=== PATIENT | female | born 1985 | race African-American/Black ===

== ENCOUNTER 2017-03-22 17:01 | Emergency (ER) | payer OTHER | END 2017-03-22 23:14 | disposition left against medical advice (07) | LOC: ER 22:31 | DX: M79.643 Pain in unspecified hand (principal); Z53.21 Procedure and treatment not carried out due to patient leaving prior to being seen by health care provider ==

== ENCOUNTER 2017-08-22 09:58 | Emergency (ER) | payer MEDICAID, OTHER ==
[~2017-08-22] VITALS: Ht 165.1 cm; Wt 68.7 kg
[2017-08-22] MEDS ORDERED: IBUPROFEN 800MG TABLET PO ONE (11:30)
[2017-08-22 11:43] VITALS: BP 101/61
== END 2017-08-22 12:39 | disposition home or self-care (01) ==
LOC: ER 10:31
DX: K04.7 Periapical abscess without sinus (principal); F17.200 Nicotine dependence, unspecified, uncomplicated; F12.10 Cannabis abuse, uncomplicated
CPT/HCPCS: 99283

== ENCOUNTER 2018-01-05 00:09 | Emergency (ER) | payer MEDICAID, OTHER | END 2018-01-05 01:25 | disposition left against medical advice (07) | LOC: ER 00:09 | DX: Z53.21 Procedure and treatment not carried out due to patient leaving prior to being seen by health care provider (principal) ==

== ENCOUNTER 2018-08-30 09:02 | Emergency (ER) | payer OTHER ==
[~2018-08-30] VITALS: Ht 165.1 cm; Wt 68.0 kg
[2018-08-30] MEDS ORDERED: KETOROLAC 30MG/ML VIAL IV ONE (10:15)
[2018-08-30 10:47] LABS: BASOPHILS % 1.1 % (0.0-2.0); EOSINOPHILS % 2.4 % (0.0-5.0); HEMATOCRIT. 37.8 % (36.0-48.0); HEMOGLOBIN. 12.8 g/dL (12.0-16.0); LYMPHOCYTES % 18.9 % (20.0-50.0); MEAN CORPUSCULAR HEMOGLOBIN 28.4 pg (28.0-32.0); MEAN CORPUSCULAR VOLUME 83.9 fL (81.0-99.0); MEAN PLATELET VOLUME 8.5 fl (7.4-10.4); MONOCYTES % 9.3 % (2.0-8.0); NEUTROPHILS % 68.3 % (40.0-76.0); PLATELET 245 x1000/uL (130-400); RED CELL DISTRIBUTION WIDTH 15.4 % (11.6-14.6)
[2018-08-30 10:53] LABS: CHLORIDE 108 mEq/L (98-107)
[2018-08-30 15:30] VITALS: BP 118/61
== END 2018-08-30 15:30 | disposition home or self-care (01) ==
LOC: ER 09:02
DX: R07.89 Other chest pain (principal); M25.562 Pain in left knee
CPT/HCPCS: 36415; 71045; 73562; 80053; 81025; 83880; 84484; 85025; 93005; 96374; 99284; J1885

== ENCOUNTER 2019-05-04 14:50 | Emergency (ER) | payer MEDICAID, OTHER ==
[~2019-05-04] VITALS: Ht 165.1 cm; Wt 61.0 kg
[2019-05-04 14:59] VITALS: BP 131/80
== END 2019-05-04 18:47 | disposition home or self-care (01) ==
LOC: ER 14:50
DX: J02.9 Acute pharyngitis, unspecified (principal); F17.210 Nicotine dependence, cigarettes, uncomplicated; F12.10 Cannabis abuse, uncomplicated
CPT/HCPCS: 99283

== ENCOUNTER 2019-05-06 03:52 | Emergency (ER) | payer MEDICAID ==
[~2019-05-06] VITALS: Ht 165.1 cm; Wt 70.0 kg
[2019-05-06] MEDS: SODIUM CHLORIDE 0.9% 1,000 ML IV ONE (05:15)
[2019-05-06 05:33] LABS: HEMATOCRIT. 47.4 % (36.0-48.0); HEMOGLOBIN. 16.1 g/dL (12.0-16.0); MEAN CORPUSCULAR HEMOGLOBIN 29.5 pg (28.0-32.0); MEAN CORPUSCULAR VOLUME 86.8 fL (81.0-99.0); MEAN PLATELET VOLUME 8.6 fl (7.4-10.4); PLATELET 263 x1000/uL (130-400); RED BLOOD CELL COUNT 5.45 mill/uL (4.2-5.4); RED CELL DISTRIBUTION WIDTH 13.8 % (11.6-14.6)
[2019-05-06 05:41] LABS: CHLORIDE 107 mEq/L (98-107)
[2019-05-06 05:47] LABS: HCG SCREEN NEGATIVE
[2019-05-06] MEDS: ONDANSETRON HCL 4MG/2ML INJ IV STA (05:55)
[2019-05-06 06:05] LABS: PLATELET ESTIMATE NORMAL
[2019-05-06 06:44] LABS: CLARITY URINE CLEAR (CLEAR); COLOR URINE YELLOW (YELLOW); KETONES URINE 4+ (NEGATIVE); LEUKOCYTE ESTERASE URINE NEGATIVE (NEGATIVE); NITRITE URINE NEGATIVE (NEGATIVE); OCCULT BLOOD URINE 3+ (NEGATIVE); PH URINE 5.5 (4.5-8.0); PROTEIN URINE 2+ (NEGATIVE); SPECIFIC GRAVITY URINE 1.027 (1.005-1.030)
[2019-05-06] MEDS: HALOPERIDOL LACTATE 5MG/ML VIAL IM ONE (06:45)
[2019-05-06] MEDS: KETOROLAC 30MG/ML VIAL IV ONE (06:56)
[2019-05-06 06:58] LABS: *AMPHETAMINES SCREEN URINE NEGATIVE (NEGATIVE); *BARBITURATES SCREEN URINE NEGATIVE (NEGATIVE); *BENZODIAZEPINES SCREEN URINE NEGATIVE (NEGATIVE)
[2019-05-06 06:59] LABS: METHADONE URINE SCREEN NEGATIVE (NEGATIVE); OPIATES URINE SCREEN NEGATIVE (NEGATIVE); PHENCYCLIDINE URINE SCREEN NEGATIVE (NEGATIVE)
[2019-05-06 07:03] LABS: *COCAINE SCREEN URINE PRESUMTIVE POSITIVE (NEGATIVE); CANNABINOID URINE SCREEN PRESUMTIVE POSITIVE (NEGATIVE)
[2019-05-06 08:25] VITALS: BP 114/80
== END 2019-05-06 08:35 | disposition home or self-care (01) ==
LOC: ER 03:52
DX: F12.288 Cannabis dependence with other cannabis-induced disorder (principal); R11.2 Nausea with vomiting, unspecified; F14.10 Cocaine abuse, uncomplicated; R10.84 Generalized abdominal pain
CPT/HCPCS: 36415; 76705; 80053; 80305; 81003; 83690; 84703; 85025; 96361; 96372; 96374; 96375; 99284; J1630; J1885; J2405; J7030

== ENCOUNTER 2019-05-07 16:16 | Emergency (ER) | payer MEDICAID ==
[~2019-05-07] VITALS: Ht 167.6 cm; Wt 68.0 kg
[2019-05-07 16:17] VITALS: BP 120/74
== END 2019-05-07 17:59 | disposition left against medical advice (07) ==
LOC: ER 16:48
DX: Z53.21 Procedure and treatment not carried out due to patient leaving prior to being seen by health care provider (principal)

== ENCOUNTER 2021-05-29 15:07 | Emergency (ER) | payer MEDICAID, OTHER ==
[~2021-05-29] VITALS: Ht 165.1 cm; Wt 68.0 kg
[2021-05-29 15:45] VITALS: BP 129/76
== END 2021-05-29 19:34 | disposition left against medical advice (07) ==
LOC: ER 15:14
DX: Z53.21 Procedure and treatment not carried out due to patient leaving prior to being seen by health care provider (principal)

== ENCOUNTER 2021-06-01 08:46 | Emergency (ER) | payer OTHER ==
[~2021-06-01] VITALS: Ht 165.1 cm; Wt 68.0 kg
[2021-06-01 08:53] VITALS: BP 107/75
== END 2021-06-01 09:41 | disposition left against medical advice (07) ==
LOC: ER 08:46
DX: H92.01 Otalgia, right ear (principal)
CPT/HCPCS: 99281

== ENCOUNTER 2022-04-23 16:22 | Emergency (ER) | payer OTHER ==
[~2022-04-23] VITALS: Ht 165.1 cm; Wt 70.0 kg
[2022-04-23 16:34] VITALS: BP 118/75
== END 2022-04-23 20:21 | disposition left against medical advice (07) ==
LOC: ER 16:22
DX: Z53.21 Procedure and treatment not carried out due to patient leaving prior to being seen by health care provider (principal)

== ENCOUNTER 2022-06-27 20:34 | Emergency (ER) | payer OTHER ==
[~2022-06-27] VITALS: Ht 165.1 cm; Wt 65.8 kg
[2022-06-27 21:32] VITALS: BP 138/84
== END 2022-06-28 04:38 | disposition left against medical advice (07) ==
LOC: ER 20:34
DX: Z53.21 Procedure and treatment not carried out due to patient leaving prior to being seen by health care provider (principal)